=== PATIENT | male | born 1980 | race Caucasian/White ===

== ENCOUNTER 2018-02-06 01:46 | Inpatient (IN) | payer SELFPAY ==
--- NOTE | 2018-02-06 02:29 | C.PDOC ---
History Of Present Illness 37 year old male presents to the ER with a complaint of feeling anxious, intermittent chest tightness, and palpitations for the past week. Patient also reports he has been having suicidal thoughts but no attempts. He notes he has been depressed with things going on at home and is requesting a psych evaluation. Denies chest pain or SOB at this time. Time Seen by Provider: 02/06/18 02:02 Chief Complaint (Nursing): Chest Pain History Per: Patient History/Exam Limitations: no limitations Onset/Duration Of Symptoms: Days, Intermittent Episodes Current Symptoms Are (Timing): Still Present Suicide/Self Injury Attempted (Context): None Associated Symptoms: Depression, Suicidal Thoughts Involuntary Hold By: None Recent travel outside of the [place]: No Past Medical History Reviewed: Historical Data, Nursing Documentation, Vital Signs Vital Signs: Last Vital Signs Temp 98 F 02/06/18 06:48 Pulse 47 L 02/06/18 06:48 Resp 18 02/06/18 06:48 BP 141/95 H 02/06/18 06:48 Pulse Ox 99 02/06/18 04:48 Surgical History: Appendectomy Family History: States: Unknown Family Hx - Social History Hx Alcohol Use: No Hx Substance Use: Yes - Immunization History Hx Tetanus Toxoid Vaccination: No Hx Influenza Vaccination: No Hx Pneumococcal Vaccination: No Review Of Systems Cardiovascular: Negative for: Chest Pain Respiratory: Negative for: Shortness of Breath Psych: Positive for: Anxiety, Depression, Suicidal ideation Physical Exam - Physical Exam Appears: Non-toxic, No Acute Distress Skin: Normal Color, Warm, Dry Head: Atraumatic, Normacephalic Eye(s): bilateral: Normal Inspection Chest: Symmetrical, No Tenderness Cardiovascular: Rhythm Regular Respiratory: Normal Breath Sounds, No Rales, No Rhonchi, No Wheezing Neurological/Psych: Oriented x3, Normal Speech ED Course And Treatment - Laboratory Results Result Diagrams: 02/06/18 02:25 02/06/18 02:25 ECG: Interpreted By Me, Viewed By Me ECG Rhythm: Sinus Bradycardia ECG Interpretation: Normal Interpretation Of ECG: No acute ST/T changes Rate From EC O2 Sat by Pulse Oximetry: 98 Progress Note: EKG, blood work, and urinalysis ordered. Crisis notified. Patient was medically cleared and evaluated by crisis who state patient is accepted for psych admission under Dr. Magaña. 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 - Scribe Statement The provider has reviewed the documentation as recorded by the Scribnaomi Vu All medical record entries made by the Belindaibnaomi were at my direction and personally dictated by me. I have reviewed the chart and agree that the record accurately reflects my personal performance of the history, physical exam, medical decision making, and the department course for this patient. I have also personally directed, reviewed, and agree with the discharge instructions and disposition.
[2018-02-06 02:30] LABS: BASO # 0.2 K/uL (0.0-0.2); BASO % 2.9 % (0.0-2.0); EOS # 0.2 K/uL (0.0-0.7); EOS % 2.5 % (0.0-4.0); HEMOGLOBIN 13.1 g/dL (12.0-18.0); LYMPH # 2.9 K/uL (1.0-4.3); LYMPH % 37.1 % (20.0-40.0); MEAN CELL VOLUME 91.5 fL (80.0-94.0); MEAN CORPUSCULAR HEMOGLOBIN 31.4 pg (27.0-31.0); MEAN CORPUSCULAR HGB CONC 34.3 g/dL (33.0-37.0); MEAN PLATELET VOLUME 11.3 fL (7.2-11.7); MONO # 0.7 K/uL (0.0-0.8); MONO % 8.5 % (0.0-10.0); NEUT # 3.9 K/uL (1.8-7.0); NRBC % 0.1 % (0.0-2.0); RBC 4.19 Mil/uL (4.40-5.90); WHITE BLOOD COUNT 7.9 K/uL (4.8-10.8)
[2018-02-06 02:39] LABS: ALB/GLOB RATIO 1.4 (1.0-2.1); ALBUMIN 4.4 g/dL (3.5-5.0); ALT/SGPT 37 U/L (21-72); AST/SGOT 30 U/L (17-59); BLOOD UREA NITROGEN 21 mg/dL (9-20); CALCIUM 9.4 mg/dl (8.6-10.4); GFR AFRICAN-AMERICAN > 60; GFR NON-AFRICAN AMERICAN > 60
[2018-02-06 03:49] LABS: SQUAMOUS EPITHIAL < 1 /hpf (0-5); URINE BILIRUBIN NEGATIVE (NEGATIVE); URINE BLOOD NEGATIVE (NEGATIVE); URINE CLARITY Clear (Clear); URINE COLOR Yellow (YELLOW); URINE GLUCOSE (UA) NORMAL (Normal); URINE LEUKOCYTE ESTERASE NEG Leu/uL (Negative); URINE PROTEIN NEGATIVE (NEGATIVE); URINE UROBILINOGEN NORMAL mg/dL (0.2-1.0)
[2018-02-06 04:11] LABS: BARBITURATES, UR NEGATIVE (NEGATIVE); BENZODIAZEPINES, UR NEGATIVE (NEGATIVE); OPIATES, UR NEGATIVE (NEGATIVE)
[2018-02-06 05:07] LABS: PHENCYCLIDINE, UR POSITIVE (NEGATIVE)
--- NOTE | 2018-02-06 06:18 | PCM.BM ---
<Ania Alvarado - Last Filed: 02/06/18 06:16> Treatment Plan Problems - Problems identified on initial assessmt Depression Date Initiated: 02/06/18 Time Initiated: 05:30 Assessment reference: NA Status: Active Suicidal Ideation Date Initiated: 02/06/18 Time Initiated: 05:30 Assessment reference: NA Status: Active Substance Abuse Date Initiated: 02/06/18 Time Initiated: 05:30 Assessment reference: NA Status: Active Treatment assets and liabiliti Patient Assests: cooperative, ADL independent, negotiates basic needs, cognitively intact Patient Liabilities: financial problems, relationship conflicts, substance abuse - Milieu Protocol Maintain good personal hygiene: daily Encourage regular showers, daily Remind patient to perform daily oral care, daily Assist patient to perform ADL's Conduct patient checks and document Observation sheet: Q15 minutes Maintain personal safety: every shift Educate patient to report safety concerns to staff, every shift Monitor environment for contraband/sharps Medication safety: Monitor for expected outcome, potential side effects: every shift, Assess barriers to learning: every shift, Assess readiness for medication education: every shift <Cinda Nichole - Last Filed: 02/06/18 11:30> Family Contact Family involvement: Family/SO is involved Family contact: Patient declines to allow family contact at present - Goals for Treatment Patient goals for treatment: "I need the right meds," Discharge/Continuing Care - Education Needs Education Needs: Patient Medication, Patient Coping Skills - Discharge Discharge Criteria: Tolerates medication w/o severe side effects, Reduction of target symptoms Discharge to:: Senior Living - Treatment Team Participation Discussed with Family/SO: No Was Patient/Family/SO present at Treatment Team Meeting: Yes <Juan Carlos Magaña - Last Filed: 02/06/18 11:31> - Diagnosis (1) Bipolar disorder Status: Acute Interventions: 02/06/18 11:31 * Assess/adjust medications daily and /or as needed * See patient on an individual basis 7x/week to assess level of manic behaviors and stability * Discuss risks, benefits, side effects and alternatives of medications *
[2018-02-06 07:03] VITALS: O2SAT 98
--- NOTE | 2018-02-06 10:55 | PCM.PSYCH ---
Initial Psychiatric Evaluation - Initial Psychiatric Evaluation Type of Admission: Voluntary Legal Status: Capacity Chief Complaint (in patient's own words): I was feeling depressed and suicidal.' History of Present Illness and Precipitating Events: This is a 37 years old HM, with long history of depressive disorder and long history of incarcerations, came to the hospital with depressed mood and suicidal ideations. As per the ED note, the stated that he is suicidal because he is having family problems which consist of (5) babies and (5) different mothers. Pt said that he is not getting along with any of them for one reason or another. Pt said there was an incident today because one of his children had a birthday and he was not allowed to see the child. Patient also reported that his sister and his mother from heart failure and fears that he will also. Pt also stated that he needs medication to stabilze him mentally. Pt was not able to say what type of medication he has taken in the past. Pt also reported not eating and not sleeping. He also reported a long Hx of incarcerations which is causing him problems with support for his five children. Pt reported that he is presently driving w/o a license. Patient reports depressed mood and feelings of hopelessness and helplessness. He also reports at times racing thoughts, irritability and agitation. He reports auditory hallucinations, whispers. He also reports sometimes persecutory delusions that someone is following him. He also reports history of smoking marijuana and PCP a few puffs on and off. Past medical history None reported Current Medications: Active Medications Generic Name Dose Route Start Last Admin Trade Name Freq PRN Reason Stop Dose Admin Pneumococcal Polyvalent Vaccine 0.5 ml 02/09/18 10:00 Pneumovax 23 Vaccine IM 02/09/18 10:01 .ONCE ONE Past Psychiatric History - Past Psychiatric History Previous Treatment History: Inpatient Pertinent Medical Hx (Current Medical&Sleep Prob, Allergies): Allergies Allergy/AdvReac Type Severity Reaction Status Date / Time No Known Allergies Allergy Unverified 02/06/18 01:57 No Known Home Med 02/06/18 Review of Systems - Review of Systems All systems: reviewed and no additional remarkable complaints except - Psychiatric Psychiatric: Anxiety, Auditory Hallucinations, Irritability, Mood Swings, Paranoia, Suicidal Ideation Mental Status Examination - Personal Presentation Personal Presentation: Looks stated age - Affect Affect: Broad, Depressed - Motor Activity Motor Activity: Psychomotor Agitation - Reliability in Providing Information Reliability in Providing Information: Poor, due to alteration in thoughts, Poor , due to altered mood - Speech Speech: Organized - Mood Mood: Depressed, Anxious - Formal Thought Process Formal Thought Process: Hallucinations, Delusions, Paranoia - Hallucinations/Delusions Hallucinations: Auditory Delusions: Persecution - Obsessions/Compulsions Obsessions: No Compulsions: No - Cognitive Functions Orientation: Person, Place, Situation, Time Sensorium: Alert Attention/Concentration: Attentive Abstract Thinking: [place] Estimate of Intelligence: Below average Judgement: Imparied, as evidence by: Poor judgement, Imparied, as evidence by: Lack of insight into illness - Risk Risk: Suicidal, Diminished functioning - Limitations Limitations: Living alone DSM 5 DX - DSM 5 DSM 5 Diagnosis: Bipolar mixed severe with psychotic features Cannabis use disorder moderate PCP use disorder moderate - Recommended/Plan of Treatment Treatment Recommendations and Plan of Treatment: Bipolar mixed severe with psychotic features -CBT -Psychoeducation -Supportive therapy, group therapy, individual therapy -Seroquel 100 mg PO QHS -Depakote 250 mg by mouth twice a day -Neurontin 100 mg by mouth 3 times a day Cannabis use disorder moderate -Supportive therapy, individual therapy -Use SC for abstinence PCP use disorder moderate -Supportive therapy, individual therapy -Use SC for abstinence - Smoking Cessation Smoking Cessation Initiated: No
[2018-02-06] MEDS: Divalproex 250 mg DR Tab PO SCH ×2 (14:55→17:04)
[2018-02-07] MEDS: Divalproex 250 mg DR Tab PO SCH ×2 (09:36→17:03)
[2018-02-08 07:17] VITALS: RESP 20
[2018-02-08] MEDS: Divalproex 250 mg DR Tab PO SCH ×2 (09:19→18:25)
--- NOTE | 2018-02-08 23:05 | CARD ---
APPROVED REPORT EKG Measurement Heart [id number] <Conclusion> Sinus bradycardia ST elevation, probably due to early repolarization Borderline ECG
[2018-02-09 06:05] VITALS: BP 107/66; PULSE 60; TEMP 97.7
[2018-02-09] MEDS: Divalproex 250 mg DR Tab PO SCH (09:05)
[2018-02-09] MEDS ORDERED: Influenza Vaccine 60 mcg/0.5 mL SYR (4YR UP) IM ONE (10:00)
[2018-02-09] MEDS ORDERED: Pneumococcal 23-Valent Vaccine IM ONE (10:00)
--- NOTE | 2018-02-09 15:09 | PCM.PYCHDC ---
Mental Status Examination - Mental Status Examination Orientation: Person, Place, Situation, Time Memory: Intact Mood: Neutral Affect: Other (Appropriate) Speech: Appropriate Attention: WNL Concentration: WNL Association: WNL Fund of Knowledge: WNL Formal Thought Process: No Impairment Description of patient's judgement and insight: None Suicidal Ideation: No Current Homicidal Ideation?: No Discharge Summary - Discharge Note Reason for Hospitalization: Bipolar 2 disorder Cannabis use disorder PCP use disorder Laboratory Data: Reviewed Consultations:: List each consultation separately and include: 1. Reason for request. 2. Findings. 3. Follow-up Summary of Hospital Course include:: 1. Description of specific treatment plan utilized for patients during their course of treatmen. 2. Summarize the time- course for resolution of acute symptoms and/or regressed behaviors. 3. Describe issues identified and worked on during hospitalization. 4. Describe medication utilized. 5. Describe medical problems identified and treated. 6. Reassessment of suicide risk Summary of Hospital Course: This is a 37 years old HM, with long history of depressive disorder and long history of incarcerations, came to the hospital with depressed mood and suicidal ideations. As per the ED note, the stated that he is suicidal because he is having family problems which consist of (5) babies and (5) different mothers. Pt said that he is not getting along with any of them for one reason or another. Pt said there was an incident today because one of his children had a birthday and he was not allowed to see the child. Patient also reported that his sister and his mother from heart failure and fears that he will also. Pt also stated that he needs medication to stabilze him mentally. Pt was not able to say what type of medication he has taken in the past. Pt also reported not eating and not sleeping. He also reported a long Hx of incarcerations which is causing him problems with support for his five children. Pt reported that he is presently driving w/o a license. Patient reports depressed mood and feelings of hopelessness and helplessness. He also reports at times racing thoughts, irritability and agitation. He reports auditory hallucinations, whispers. He also reports sometimes persecutory delusions that someone is following him. He also reports history of smoking marijuana and PCP a few puffs on and off During his stay in the hospital patient was treated with Depakote, Seroquel and gabapentin. Patient started feeling better and requesting discharge from the hospital. Patient was stable, no withdrawal symptoms from PCP, stable mood. At the time of evaluation and discharge, patient was awake alert oriented 3, has no delusions, no suicidal ideations or homicidal ideations. Patient was discharged in a stable condition. - Final Diagnosis (DSM 5) Condition upon Discharge: STABLE Disposition: HOME/ ROUTINE Prescriptions/Medication Reconciliation: Divalproex [Depakote DR] 250 mg PO BID #60 tcp Gabapentin [Neurontin] 100 mg PO TID #90 cap QUEtiapine [Seroquel] 100 mg PO HS #30 tab - Smoking Cessation Smoking Cessation Medication prescribed: No - Antipsychotic Medications Pt discharged on 2 or more routine antipsychotic medications: No
== END 2018-02-09 10:25 | disposition home or self-care (01) | DRG 885 ==
LOC: SUPCPDRO 01:46 → C.ER 01:46 → C.5E 04:32
PROVIDERS: ADMIT Psychiatry & Neurology Psychiatry; ATTEND Psychiatry & Neurology Psychiatry
PROC: GZHZZZZ Group Psychotherapy (ICD-10-PCS; principal; 2018-02-06)
PROC: GZ58ZZZ Individual Psychotherapy, Cognitive-Behavioral (ICD-10-PCS; 2018-02-06)
PROC: GZ56ZZZ Individual Psychotherapy, Supportive (ICD-10-PCS; 2018-02-06)
DX: F31.5 Bipolar disorder, current episode depressed, severe, with psychotic features (principal); R45.851 Suicidal ideations; F12.90 Cannabis use, unspecified, uncomplicated; F16.90 Hallucinogen use, unspecified, uncomplicated

== ENCOUNTER 2018-03-30 23:44 | Emergency (ER) | payer SELFPAY ==
[2018-03-31 00:09] VITALS: BP 126/73; PULSE 79; RESP 16; TEMP 98.2; O2SAT 100
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
== END 2018-03-31 00:24 | disposition home or self-care (01) ==
LOC: C.ER 23:44
DX: M25.562 Pain in left knee (principal); M25.561 Pain in right knee; G89.29 Other chronic pain

== ENCOUNTER 2018-08-03 21:49 | Emergency (ER) | payer SELFPAY ==
[2018-08-03 22:03] VITALS: TEMP 97.7
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
[2018-08-03 22:43] LABS: BASO # 0.1 K/uL (0.0-0.2); BASO % 0.8 % (0.0-2.0); EOS # 0.2 K/uL (0.0-0.7); EOS % 1.9 % (0.0-4.0); HEMOGLOBIN 13.7 g/dL (12.0-18.0); LYMPH % 44.7 % (20.0-40.0); MEAN CELL VOLUME 90.3 fL (80.0-94.0); MEAN CORPUSCULAR HEMOGLOBIN 31.1 pg (27.0-31.0); MEAN CORPUSCULAR HGB CONC 34.5 g/dL (33.0-37.0); MEAN PLATELET VOLUME 10.7 fL (7.2-11.7); MONO # 0.8 K/uL (0.0-0.8); MONO % 9.2 % (0.0-10.0); NEUT # 3.9 K/uL (1.8-7.0); NEUT % 43.4 % (50.0-75.0); NRBC % 0.1 % (0.0-2.0); RBC 4.41 Mil/uL (4.40-5.90); RED CELL DISTRIBUTION WIDTH 13.5 % (11.5-14.5); WHITE BLOOD COUNT 8.9 K/uL (4.8-10.8)
[2018-08-03 22:50] LABS: INR 1.3; PROTHROMBIN TIME 14.7 SECONDS (9.7-12.2)
[2018-08-03 23:06] LABS: ALB/GLOB RATIO 1.6 (1.0-2.1); ALBUMIN 4.8 g/dL (3.5-5.0); ALT/SGPT 24 U/L (21-72); AST/SGOT 43 U/L (17-59); BLOOD UREA NITROGEN 16 mg/dL (9-20); CALCIUM 10.2 mg/dl (8.6-10.4); GFR NON-AFRICAN AMERICAN > 60
[2018-08-03] MEDS ORDERED: Potassium Chloride 20 mEq ER Tab PO STA (23:06)
[2018-08-03] MEDS ORDERED: Potassium Chloride 20 mEq ER Tab PO ONE (23:34)
[2018-08-03 23:52] VITALS: BP 116/74; PULSE 78; RESP 14
[2018-08-04 02:25] VITALS: O2SAT 100
--- NOTE | 2018-08-04 10:23 | RAD ---
Date of service: 08/03/2018 HISTORY: chest pain COMPARISON: No prior. TECHNIQUE: Chest PA and lateral FINDINGS: LUNGS: No active pulmonary disease. PLEURA: No significant pleural effusion identified. No pneumothorax apparent. CARDIOVASCULAR: Normal. OSSEOUS STRUCTURES: No significant abnormalities. VISUALIZED UPPER ABDOMEN: Normal. OTHER FINDINGS: None. IMPRESSION: No acute cardiopulmonary disease appreciated.
--- NOTE | 2018-08-05 09:14 | CARD ---
APPROVED REPORT Date of service: 08/03/2018 EKG Measurement Heart [id number] <Conclusion> Normal sinus rhythm Normal ECG
== END 2018-08-03 23:52 | disposition left against medical advice (07) ==
LOC: C.ER 21:49
DX: R07.9 Chest pain, unspecified (principal); E87.6 Hypokalemia
CPT/HCPCS: 71046; 80053; 84484; 85025; 85610; 85730; 93005; 94770; 96374; 99284; J2060

== ENCOUNTER 2018-09-07 00:07 | Emergency (ER) | payer SELFPAY ==
--- NOTE | 2018-09-07 02:12 | C.PDOC ---
History Of Present Illness 37 year old male presents to the ED requesting psychiatric evaluation. Patient reports feeling depressed and overwhelmed. Patient is also c/o bilateral knee pain. Patient denies SI/HI, hallucinations, weakness, numbness, trauma, injury, fall. Time Seen by Provider: 09/07/18 00:30 Chief Complaint (Nursing): Psychiatric Evaluation History Per: Patient History/Exam Limitations: no limitations Onset/Duration Of Symptoms: Days Current Symptoms Are (Timing): Still Present Suicide/Self Injury Attempted (Context): None Modifying Factor(s): None Associated Symptoms: Depression. denies: Suicidal Thoughts, Suicidal Plan Recent travel outside of the [place]: No Additional History Per: Patient Past Medical History Reviewed: Historical Data, Nursing Documentation, Vital Signs Vital Signs: Last Vital Signs Temp 97.4 F L 09/07/18 00:24 Pulse 66 09/07/18 00:24 Resp 20 09/07/18 00:24 BP 134/86 09/07/18 00:24 Pulse Ox 98 09/07/18 00:24 - Medical History PMH: Anxiety, HTN (not medicated) Denies: Arthritis, Asthma, Diabetes, Hepatitis, HIV, Hyperthyroidism, Seizures, Sexually Transmitted Disease Surgical History: Appendectomy - [facility] Procedures GROUP PSYCHOTHERAPY (02/06/18) INDIVIDUAL PSYCHOTHERAPY, COGNITIVE-BEHAVIORAL (02/06/18) INDIVIDUAL PSYCHOTHERAPY, SUPPORTIVE (02/06/18) Family History: States: Unknown Family Hx - Social History Hx Alcohol Use: Yes Hx Substance Use: Yes - Immunization History Hx Tetanus Toxoid Vaccination: No Hx Influenza Vaccination: No Hx Pneumococcal Vaccination: No Review Of Systems Constitutional: Negative for: Fever, Chills Cardiovascular: Negative for: Chest Pain Respiratory: Negative for: Shortness of Breath Gastrointestinal: Negative for: Nausea, Vomiting Musculoskeletal: Positive for: Leg Pain Skin: Negative for: Rash Psych: Positive for: Depression. Negative for: Suicidal ideation Physical Exam - Physical Exam Appears: Non-toxic, No Acute Distress Skin: Normal Color, Warm, Dry Head: Atraumatic, Normacephalic Eye(s): bilateral: Normal Inspection Neck: Normal ROM, Supple Chest: Symmetrical Cardiovascular: Rhythm Regular Respiratory: Normal Breath Sounds, No Rales, No Rhonchi, No Wheezing Gastrointestinal/Abdominal: Soft, No Tenderness, No Guarding, No Rebound Extremity: Normal ROM, No Tenderness, No Swelling Neurological/Psych: Oriented x3, Normal Speech, Normal Cognition Gait: Steady ED Course And Treatment O2 Sat by Pulse Oximetry: 98 (ON RA) Pulse Ox Interpretation: Normal Progress Note: Plan: - crisis evaluation. Pt was evaluated by Crisis and case d/w Dr Magaña and pt is being referred to [facility] for evaluation. Pt agrees with plan and advised to take tylenol or advil for pain Disposition Counseled Patient/Family Regarding: Diagnosis, Need For Followup, Rx Given - Disposition Referrals: [facility] [Other] [facility] [Outside] Disposition: HOME/ ROUTINE Disposition Time: 02:09 Condition: STABLE Additional Instructions: Follow up at [facility] for further evaluation Tylenol or advil for pain Follow up in medical clinic Return to ER if worse Instructions: Bipolar Disorder (DC) Forms: [employer] (Chinese) - Clinical Impression Clinical Impression: Bipolar disorder, Knee pain, bilateral - PA / [employer]STRU[employer] / Resident Statement MD/DO has reviewed & agrees with the documentation as recorded. - Scribe Statement The provider has reviewed the documentation as recorded by the Scribe Mark Barrera All medical record entries made by the Scribe were at my direction and pers onally dictated by me. I have reviewed the chart and agree that the record accurately reflects my personal performance of the history, physical exam, medical decision making, and the department course for this patient. I have also personally directed, reviewed, and agree with the discharge instructions and disposition.
[2018-09-07 02:15] VITALS: BP 156/94; PULSE 56; RESP 18; TEMP 98.1
[2018-09-07 02:24] VITALS: O2SAT 98
== END 2018-09-07 02:16 | disposition home or self-care (01) ==
LOC: C.ER 00:07
DX: F31.9 Bipolar disorder, unspecified (principal); M25.562 Pain in left knee; M25.561 Pain in right knee

== ENCOUNTER 2018-09-21 09:43 | Emergency (ER) | payer OTHER ==
[2018-09-21 09:59] VITALS: BP 120/82; PULSE 70; RESP 18; TEMP 98.1; O2SAT 99
--- NOTE | 2018-09-21 11:12 | C.PDOC ---
History Of Present Illness 37 y/o male presents to the ER complaining of headache and bleeding from nose. Patient is also complaining of not being able to sleep for the past 2 days. Patient states that he has history of anxiety and he will follow up with his psychiatrist. Currently, patient denies having bleeding from nose, fever, chills, suicidal ideation, and homicidal ideation. Time Seen by Provider: 09/21/18 10:17 Chief Complaint (Nursing): Psychiatric Evaluation History Per: Patient History/Exam Limitations: no limitations Onset/Duration Of Symptoms: Days Current Symptoms Are (Timing): Still Present Severity: Moderate Past Medical History Reviewed: Historical Data, Nursing Documentation, Vital Signs Vital Signs: Last Vital Signs Temp 98.1 F 09/21/18 09:56 Pulse 70 09/21/18 09:56 Resp 18 09/21/18 09:56 BP 120/82 09/21/18 09:56 Pulse Ox 99 09/21/18 09:56 - Medical History PMH: Anxiety, HTN (not medicated) Denies: Arthritis, Asthma, Diabetes, Hepatitis, HIV, Hyperthyroidism, Seizures, Sexually Transmitted Disease Surgical History: Appendectomy - [facility] Procedures GROUP PSYCHOTHERAPY (02/06/18) INDIVIDUAL PSYCHOTHERAPY, COGNITIVE-BEHAVIORAL (02/06/18) INDIVIDUAL PSYCHOTHERAPY, SUPPORTIVE (02/06/18) Family History: States: No Known Family Hx - Social History Hx Alcohol Use: Yes Hx Substance Use: Yes (marijuana and pcp socially) - Immunization History Hx Tetanus Toxoid Vaccination: No Hx Influenza Vaccination: No Hx Pneumococcal Vaccination: No Review Of Systems Except As Marked, All Systems Reviewed And Found Negative. Constitutional: Negative for: Fever, Chills ENT: Positive for: Nose Discharge (bleeding from nose ( currently resolved)) Physical Exam - Physical Exam Appears: Non-toxic, No Acute Distress, Other (awake,alert, conversational) Skin: Normal Color, Warm, Dry Head: Atraumatic, Normacephalic Eye(s): bilateral: Normal Inspection Nose: Normal, No Epistaxis Oral Mucosa: Moist Throat: Normal, No Erythema, No Exudate Neck: Supple Chest: Symmetrical Cardiovascular: Rhythm Regular Respiratory: Normal Breath Sounds, No Rales, No Rhonchi, No Wheezing Neurological/Psych: Oriented x3, Normal Speech ED Course And Treatment O2 Sat by Pulse Oximetry: 99 (RA) Pulse Ox Interpretation: Normal Disposition Counseled Patient/Family Regarding: Diagnosis - Disposition Disposition: HOME/ ROUTINE Disposition Time: 11:10 Condition: STABLE Prescriptions: 0.9 % Sodium Chloride [Nasal Mist] 126 ml NS TID #1 bottle Instructions: Nosebleeds (DC) Forms: General Discharge Instructions, [facility] (Malay), Work Excuse - POA Present On Arrival: None - Clinical Impression Clinical Impression: Bleeding nose - Scribe Statement The provider has reviewed the documentation as recorded by the Richie Lockwood Provider Attestation: All medical record entries made by the Richie were at my direction and personally dictated by me. I have reviewed the chart and agree that the record accurately reflects my personal performance of the history, physical exam, medical decision making, and the department course for this patient. I have also personally directed, reviewed, and agree with the discharge instructions and disposition.
== END 2018-09-21 11:15 | disposition home or self-care (01) ==
LOC: C.ER 09:43
DX: R04.0 Epistaxis (principal)

== ENCOUNTER 2019-03-29 09:07 | Inpatient (IN) | payer OTHER | END 2019-04-05 11:15 | disposition home or self-care (01) | DRG 430 | LOC: C.ER 09:07 → C.5E 12:25 | PROVIDERS: ADMIT Psychiatry & Neurology Psychiatry | PROC: HZ52ZZZ Individual Psychotherapy for Substance Abuse Treatment, Cognitive-Behavioral (ICD-10-PCS; principal; 2019-03-29) | PROC: GZHZZZZ Group Psychotherapy (ICD-10-PCS; 2019-03-29) | PROC: HZ59ZZZ Individual Psychotherapy for Substance Abuse Treatment, Supportive (ICD-10-PCS; 2019-03-29) | PROC: HZ56ZZZ Individual Psychotherapy for Substance Abuse Treatment, Psychoeducation (ICD-10-PCS; 2019-03-29) | PROC: HZ42ZZZ Group Counseling for Substance Abuse Treatment, Cognitive-Behavioral (ICD-10-PCS; 2019-03-29) | PROC: HZ46ZZZ Group Counseling for Substance Abuse Treatment, Psychoeducation (ICD-10-PCS; 2019-03-29) | PROC: GZ58ZZZ Individual Psychotherapy, Cognitive-Behavioral (ICD-10-PCS; 2019-03-29) | PROC: GZ56ZZZ Individual Psychotherapy, Supportive (ICD-10-PCS; 2019-03-29) ==